=== PATIENT | male | born 1965 | race Caucasian/White ===

== ENCOUNTER 2024-06-07 16:37 | Emergency (ER) | payer OTHER ==
[~2024-06-07] VITALS: Ht 180.3 cm; Wt 87.6 kg
[2024-06-07] MEDS ORDERED: Midodrine 5 MG Tab PO ONE (17:45)
[2024-06-07 17:48] LABS: BASOPHILS ABSOLUTE AUTO 0.12 K/mm3 (0.00-0.23); BASOPHILS PERCENT AUTO 1 % (0-2); EOSINOPHILS ABSOLUTE AUTO 0.18 K/mm3 (0.00-0.68); EOSINOPHILS PERCENT AUTO 2 % (0-6); Hematocrit 34.9 % (37.0-53.0); Hemoglobin 11.3 g/dL (13.5-17.5); IMMATURE GRAN ABSOLUTE AUTO 0.05 K/mm3 (0.00-0.10); IMMATURE GRAN PERCENT AUTO 0 % (0-1); LYMPHOCYTES PERCENT AUTO 21 % (21-46); MONOCYTES PERCENT AUTO 8 % (4-13); Mean Corpuscular HGB 28.2 pg (26.0-34.0); Mean Corpuscular HGB Conc 32.4 g/dL (31.5-36.5); Mean Corpuscular Volume 87 fL (80-100); Mean Platelet Volume 9.3 fL (9.1-12.4); NEUTROPHILS ABSOLUTE AUTO 8.31 K/mm3 (1.96-9.15); NEUTROPHILS PERCENT AUTO 68 % (41-73); Platelet Count 336 K/mm3 (150-400); RDW Coefficient Variation 18.3 % (11.7-14.2); RDW Standard Deviation 57.2 fL (35.1-46.3); Red Blood Cell Count 4.01 M/mm3 (4.30-5.90); White Blood Cell Count 12.26 K/mm3 (4.00-11.30)
[2024-06-07] MEDS ORDERED: MIDO5 PO (17:55)
[2024-06-07] MEDS ORDERED: FURO40 PO (17:55)
[2024-06-07] MEDS ORDERED: WARF6 PO (17:56)
[2024-06-07 18:01] LABS: International Normalized Ratio 2.67; Prothrombin Time Results 26.6 Sec (9.7-11.5)
[2024-06-07 18:05] LABS: Albumin, Blood 2.6 g/dL (3.4-5.0); Albumin/Globulin Ratio 0.6 (0.8-1.8); Bilirubin, Total 3.5 mg/dL (0.1-1.0); Bun/Creatinine Ratio 26.7 (12.0-20.0); Calcium, Blood 8.8 mg/dL (8.5-10.1); Creatinine, Blood 1.01 mg/dL (0.60-1.20); Globulin, Blood 4.3 g/dL (2.2-4.0); Potassium, Blood 3.6 mmol/L (3.5-5.5); Total Protein, Blood 6.9 g/dL (6.4-8.2)
[2024-06-07 22:18] LABS: Automated BF RBC Count 0.003 M/mm3 (0-0); Automated BF WBC Count 0.449 K/mm3 (0-999)
[2024-06-07 22:20] LABS: Body Fluid WBC Count 449 /mm3 (0-999); RBC Count, Body Fluid 3000 /mm3 (0-0)
[2024-06-07 22:52] LABS: Appearance, Body Fluid Hazy (Clear); Color, Body Fluid Yellow (None-Yellow); Total Cell Count, Body Fluid 100
== END 2024-06-08 00:49 | disposition home or self-care (01) ==
LOC: ER 16:37
PROVIDERS: Student in an Organized Health Care Education/Training Program
DX: R18.8 Other ascites (principal); R06.00 Dyspnea, unspecified; Z79.01 Long term (current) use of anticoagulants; Z79.899 Other long term (current) drug therapy
CPT/HCPCS: 49083; 80053; 85025; 85610; 87070; 87075; 87205; 89051; 93005; 93010; 99284-25; A9270

== ENCOUNTER 2024-06-08 18:33 | Emergency (ER) | payer OTHER ==
[~2024-06-08] VITALS: Ht 180.3 cm; Wt 87.0 kg
[~2024-06-08 18:33] MED LIST: FURO40 PO; MIDO5 PO; WARF6 PO
== END 2024-06-08 20:29 | disposition home or self-care (01) ==
LOC: ER 18:33
DX: R18.8 Other ascites (principal); Z79.01 Long term (current) use of anticoagulants; Z79.899 Other long term (current) drug therapy
CPT/HCPCS: 99283